=== PATIENT | female | born 1980 | race Caucasian/White ===

== ENCOUNTER 2016-12-01 21:22 | Emergency (ER) | payer OTHER ==
[~2016-12-01] VITALS: Ht 167.6 cm; Wt 86.4 kg
[~2016-12-01 21:22] MED LIST: OMEP20TA86 PO; ONDA8TAB10 PO; PROC25SU30 RC
[2016-12-01 21:30] VITALS: BP 146/79; PULSE 96; RESP 22; O2SAT 99
--- NOTE | 2016-12-01 22:04 | ED.REPORT ---
[id number] Illness Date of Service Dec 01, 2016 ED Provider: Max Campos MD Patient is a 36-year-old female with a hx of pneumonia who presents to the ED complaining of sharp chest pain onset today. The chest pain radiates into her back with inhalation. Patient c/o associated nasal congestion, sore throat, and non-productive cough which have been present for several weeks. She reports that her symptoms feel exactly the same to her previous cases of pneumonia. She denies fever, nausea, and vomiting. Her last case of pneumonia was two months ago. Nursing Notes Stated Complaint: COUGH Chief Complaint: FLU/Cold Symptoms Nursing Notes Reviewed: Yes ([employer], [employer]q not reconciled) Allergies: Coded Allergies: Sulfa (Sulfonamide Antibiotics) (Verified Allergy, Unknown, 07/31/16) codeine (Verified Allergy, Unknown, 07/31/16) Scheduled Azithromycin (Zithromax) 250 Mg Tablet 250 MG PO DAILY Fluconazole (Diflucan) 150 Mg Tablet 150 MG PO ONCE Omeprazole (Omeprazole) 20 Mg Tablet.dr 20 MG PO BID Scheduled PRN Ondansetron ODT (Ondansetron ODT) 8 Mg Tab.rapdis 8 MG PO QID PRN PRN For Nausea Prochlorperazine Maleate (Compazine Suppository) 25 Mg Supp.rect 25 MG RC Q8 PRN PRN For Nausea/Vomiting General Time Seen by Provider: 11:10 Chief Complaint Other (chest pain with inhalation) Hx Obtained From: Patient Arrived By: Walk-in Onset Occurred: Just prior to arrival Symptom Duration: Since onset Location: : Chest Radiation: Radiation present (into back upon inhalation) Severity: Current: No pain currently Recent Healthcare: Recent doctor visit (In August - for same - Rx with antibioics), Previous diagnosis (pneumonia when she has had these symptoms) Similar Sx Previous: Yes Past Medical History Past Medical History Chronic Back Pain with chronic opiate use - on Suboxone 16 mg daily multiple cases of pneumonia Past Surgical History Sinus surgery Reports: , Cholecystectomy, Tonsillectomy Smoking History Former Smoker (patient reports she quit in recent months) Social History Opiate use due to chronic back pain Alcohol Use: Denies alcohol use Drug Use: Denies drug use Ambulatory Status Independent Review of Systems Constitutional: Denies: Fever Ears / Nose / Throat: Reports: Nasal congestion Respiratory: Reports: Non-productive cough, Denies: Shortness of breath Cardiovascular: Reports: Chest pain GI: Denies: Nausea, Vomiting Complete sys rev & neg: except as marked. Physical Exam Initial Vital Signs Vital Signs (First) Date Time Temp Pulse Resp B/P Pulse Ox O2 Delivery O2 Flow Rate FiO2 12/01/16 21:30 37.6 96 22 146/79 99 Initial VS: Reviewed, Vital signs normal Head / Eyes: Atraumatic, Normocephalic, PERRL ENT: Mucous membranes moist, Conjunctiva normal, No scleral icterus Extremities: Vascular intact, Neuro intact, No swelling, No tenderness Psychiatric: Mood/affect normal, Behavior normal, Normal thought content General/Constitutional: Awake, Alert, No acute distress, Well appearing, Cooperative, Not toxic appearing Neck: Atraumatic, Supple, No meningismus, Full range of motion, No adenopathy, No swelling, Non-tender Respiratory / Chest: Atraumatic, Breath sounds NL, Breath sounds = bilat, No respiratory distress cough clutches chest in pain when coughing lungs are clear Cardiovascular: Heart rate NL, Regular rhythm, Heart sounds NL, No gallop, No murmurs, No rubs Skin: Atraumatic, Color NL, No rash, Warm, Dry Neurologic: Oriented X3, Speech NL, No motor deficits, No sensory deficits Interpretation & Diagnostics Lab Results Interpretation Lab Results Interpretation: negative for influenza A & B Re-Evaluation & [facility] Med Decision/Clinical Course This is a 36-year-old former smoker on Suboxone and presents with a cough, and pleuritic chest pain. She describes URI-type presentation over recent weeks, believes she is developed a pneumonia. 4 she has had community-acquired pneumonia several times and this feels identical. Today she has developed a bit of a pleuritic discomfort and has come in requesting straight treatment with antibiotics. sHe is not toxic. She has normal vital signs. To me her lungs are clear, I do not appreciate divya rhonchi or bronchospasm. She is not respiratory distress. Although she has pleuritic pain, her symptoms clearly sound like a respiratory infection. She is PERC rule negative and no additional workup for PE is indicated. She has no clinical features to suggest acute coronary syndrome. I do not think she has a pneumothorax However when I discussed options with her, she preferred to skip an x-ray and wishes to be directly treated with antibiotics as she is quite certain she has a bacterial infection, and again reiterates that this is identical to what she has been treated for before. Given that, I have elected to treat her empirically with azithromycin at her request. An influenza swab was negative. Patient is being discharged with a prescription for azithromycin at her request. She is also requested some diflucan and I have written a prescription for that as well. Routine precautions reviewed, patient's discharge improved condition. Source of Hx: Old records Re-Evaluation/Progress : Time of Eval: 10:25 Patient Status: Condition unchanged Re-Evaluation/Progress Note: Pt rechecked. Informed pt of diagnosis of pneumonia and plan for treatment. Pt understands and agrees with plan. F/U and RTER warnings given. All questions addressed. Differential Diagnosis: Positive: Pneumonia, Negative: Allergic rhinitis, Appendicitis, Bowel obstruction, Diabetes/DKA, Meningitis, Sepsis Counseled Regarding: Diagnosis, Lab results, Need for follow-up, When/why to return to ED Patient Discharge & Departure Impression: Primary Impression: Respiratory infection Disposition: Home Discharge Condition All VS Reviewed: Yes Condition: Stable Additional Instructions: 1. Given you have indicated the symptoms are identical to what she had with previous pneumonias, it is reasonable to treat empirically. 2. You have received the first dose of azithromycin tonight. Starting tomorrow take 1 tab of 250 mg once a day for 4 more days. 3. Rest. 4. Take extra fluids. 5. Congratulations on stopping smoking! Referrals: Cristóbal Hanson (PCP) Maryellenibmeghan Attestation Portion of this note were transcribed by Jeff Crocker. I, Dr. Campos, personally performed the history, physical exam, and medical decision-making: I reviewed and confirmed the accuracy for the information in the transcribed note. Signed by: marko Silver, 12/01/16 1100 copies to: Cristóbal Hanson Matthew F MD Dec 01, 2016 22:04 JEFF CROCKER Dec 01, 2016 22:38
[2016-12-01] MEDS ORDERED: ZIT250 PO (22:33)
[2016-12-01] MEDS ORDERED: FLUC150T48 PO (22:37)
[2016-12-01 23:23] VITALS: BP 146/79; PULSE 96; RESP 22; O2SAT 99
== END 2016-12-01 23:23 | disposition home or self-care (01) ==
LOC: SED 21:22
DX: J98.8 Other specified respiratory disorders (principal); R07.81 Pleurodynia; Z87.01 Personal history of pneumonia (recurrent); Z87.891 Personal history of nicotine dependence; Z88.2 Allergy status to sulfonamides; Z88.5 Allergy status to narcotic agent

== ENCOUNTER 2017-07-05 22:37 | Emergency (ER) | payer OTHER ==
[~2017-07-05] VITALS: Ht 167.6 cm; Wt 86.4 kg
[~2017-07-05 22:37] MED LIST changes: +FLUC150T48 PO; +ZIT250 PO
[2017-07-05 23:00] VITALS: BP 121/58; PULSE 94; RESP 18; O2SAT 92
--- NOTE | 2017-07-05 23:15 | ED.REPORT ---
HPI-General Illness Date of Service Jul 05, 2017 ED Provider: Hosea Carroll MD A 37 year old female with a history of recurrent pneumonia and chronic back pain with opiate use presents to the ED complaining of possible pneumonia. The pt has been experiencing right-sided pleuritic pain for two days. This is accompanied by fatigue, fever, chills and productive cough with yellow/green sputum, though the pt denies nausea or vomiting. The pt suspects that her symptoms are due to another episode of pneumonia. Nursing Notes Stated Complaint: POSSIBLE PNEUMONIA Chief Complaint: FLU/Cold Symptoms Nursing Notes Reviewed: Yes Allergies: Coded Allergies: Sulfa (Sulfonamide Antibiotics) (Verified Allergy, Unknown, 07/05/17) codeine (Verified Allergy, Unknown, 07/05/17) Scheduled Azithromycin (Zithromax) 250 Mg Tablet 250 MG PO DAILY Azithromycin (Zithromax (Z-Freddy)) 250 Mg Tablet 250 MG PO DIRECTED Take two tablets by mouth on day 1, then take one tablet daily on days 2 through 5. Cephalexin (Cephalexin) 500 Mg Capsule 500 MG PO QID Fluconazole (Diflucan) 150 Mg Tablet 150 MG PO ONCE Fluconazole (Fluconazole) 150 Mg Tablet 150 MG PO ONCE Omeprazole (Omeprazole) 20 Mg Tablet.dr 20 MG PO BID Scheduled PRN Ondansetron ODT (Ondansetron ODT) 8 Mg Tab.rapdis 8 MG PO QID PRN PRN For Nausea Prochlorperazine Maleate (Compazine Suppository) 25 Mg Supp.rect 25 MG RC Q8 PRN PRN For Nausea/Vomiting General Time Seen by MD: 23:14 Chief Complaint Other (Possible pneumonia) Hx Obtained From: Patient Arrived By: Walk-in Sudden in Onset?: No Onset Occurred: 2 days ago Symptom Duration: Since onset Recent Healthcare: Recent doctor visit Similar Sx Previous: Yes Past Medical History Past Medical History Chronic Back Pain with chronic opiate use - on Suboxone 16 mg daily multiple cases of pneumonia Past Surgical History Sinus surgery Reports: , Cholecystectomy, Tonsillectomy Smoking History Former Smoker Social History Opiate use due to chronic back pain Alcohol Use: Denies alcohol use Drug Use: Denies drug use Ambulatory Status Independent Review of Systems Full Review of Systems Constitutional: Reports: Chills, Fatigue, Fever Respiratory: Reports: Pleuritic pain, Prod cough, green, Prod cough, yellow GI: Denies: Abdominal pain, Nausea, Vomiting Musculoskeletal: Denies: Back pain, Neck pain Skin: Denies Rash Complete sys rev & neg: except as marked. Physical Exam Vital Signs Vital Signs Date Time Temp Pulse Resp B/P Pulse Ox O2 Delivery O2 Flow Rate FiO2 07/06/17 02:12 109 22 128/71 93 Room Air 07/06/17 02:11 109 128/71 93 Room Air 07/05/17 23:40 107 22 95 Room Air 07/05/17 23:00 37.8 94 18 121/58 92 Room Air Initial VS: Reviewed General/Constitutional: Awake, Alert Head / Eyes: Atraumatic, Normocephalic, PERRL, EOMI ENT: Atraumatic, Airway patent, Mucous membranes moist Neck: Atraumatic, Supple, Full range of motion Respiratory / Chest: Atraumatic splinting rales in right lung Cardiovascular: Regular rhythm, Heart sounds NL Heart Rate / Rhythm: Positive: Tachycardia (mild) Abdomen: Atraumatic, Soft, Non-tender Back: Atraumatic, Full range of motion Upper Extremities Upper Extremity / MS: Atraumatic, Full range of motion Lower Extremity / Pelvis / MS: Atraumatic, Full range of motion Skin: Atraumatic, No rash flushed and febrile diaphoretic Neurologic: Oriented X3, Speech NL, No motor deficits, No sensory deficits Psychiatric: Affect NL, Mood NL Interpretation & Diagnostics Lab Results Interpretation Result Diagram: 07/06/17 0004 07/06/17 0004 Test 07/06/17 00:04 07/06/17 01:24 White Blood Count 10.5th/mm3 (3.8-10.1) Red Blood Count 4.81mil/mm3 (3.90-5.20) Hemoglobin 14.7g/dL (12.0-15.6) Hematocrit 42.0% (35.0-46.0) Mean Corpuscular Volume 87.3fL (81-100) Mean Corpuscular Hemoglobin 30.6pg (27.0-35.0) Mean Corpuscular Hemoglobin Concent 35.0% (32.0-37.0) Red Cell Distribution Width 12.6% (12.3-15.4) Platelet Count 214bil/L (150-400) Neutrophils (%) (Auto) 68.9% (40-74) Lymphocytes (%) (Auto) 21.3% (14-46) Monocytes (%) (Auto) 8.3% (4-12) Eosinophils (%) (Auto) 1.2% (0-5) Basophils (%) (Auto) 0.2% (0-3) Sodium Level 139mEq/L (134-144) Potassium Level 3.4mEq/L (3.5-5.2) Chloride Level 100mEq/L (97-108) Carbon Dioxide Level 23mmol/L (18-29) Blood Urea Nitrogen 14mg/dL (6-20) Creatinine 0.65mg/dL (0.57-1.00) Estimat Glomerular Filtration Rate 147mL/min (>59) Glucose Level 97mg/dL (60-99) Lactic Acid Level 0.8mmol/L (0.4-2.0) Calcium Level 9.0mg/dL (8.5-10.1) Magnesium Level 2.0mg/dL (1.6-2.6) Total Bilirubin 1.5mg/dL (0.0-1.2) Aspartate Amino Transf (AST/SGOT) 19U/L (0-50) Alanine Aminotransferase (ALT/SGPT) 21U/L (0-32) Alkaline Phosphatase 95U/L (25-150) Total Protein 6.9g/dL (6.4-8.4) Albumin 4.5g/dL (3.4-5.0) Procalcitonin 0.03ng/mL (0.00-0.08) Hold Urine Received (Received) X-Ray Chest Interpretation Chest Xray Interpretation: right middle lobe pneumonia Interpretation / Wet Read by: Wet read ED physician Re-Eval/Medical Decision Med Decision/Clinical Course 37-year-old with prior history of pneumonia presents with fever cough which is productive and right-sided pleuritic chest pain. X-ray is a streaky infiltrate in the side that may well be middle lobe infiltrate. We will treat empirically with Rocephin and azithromycin followed by Cephalexin and azithromycin. Discharged in stable condition. Source of Hx: Old records Time of Eval: 01:17 Patient Status: Condition improved Re-Evaluation/Progress Note: Pt rechecked, who is resting comfortably. The diagnosis and plan for discharge are discussed. The pt understands and agrees with the plan. All questions are addressed at this time. Counseled Regarding: Diagnosis, Lab results, Need for follow-up, When/why to return to ED Discharge & Departure Primary Impression: Pneumonia Pneumonia type: due to unspecified organism Laterality: right Lung location : middle lobe of lung Qualified Code: J18.1 - Lobar pneumonia, unspecified organism Additional Impression: Pleuritic chest pain Disposition: Home Discharge Condition All VS Reviewed: Yes Condition: Stable Patient Instructions: Community Acquired Pneumonia (ED) Additional Instructions: Begin azithromycin one tablet daily for four more days. Begin Keflex four times daily. Follow-up with your doctor in the office. Continue nebulizer as needed for cough and shortness of breath. Return if any immediate issues over the weekend. Referrals: [facility] Scribe Attestation Portions of this note were transcribed by Linda Torres. I, Dr. Carroll personally performed the history, physical exam and medical decision-making; I reviewed and confirmed the accuracy of the information in the transcribed note. copies to: [facility] Hosea Carroll MD Jul 05, 2017 23:14 LINDA TORRES Jul 05, 2017 23:30
[2017-07-05] MEDS ORDERED: Albuterol 2.5 mg/3 mL Inhalation Solution NEB ONE (23:30)
[2017-07-05] MEDS ORDERED: Albuterol-Ipratropium 3 mL Inhalation Solution NEB ONE (23:30)
[2017-07-05 23:40] VITALS: PULSE 107; RESP 22; O2SAT 95
[2017-07-06 00:07] LABS: BASOPHILS % (AUTO) 0.2 % (0-3); EOSINOPHILS % (AUTO) 1.2 % (0-5); MONOCYTES % (AUTO) 8.3 % (4-12); Mean Corpuscular Hemoglobin 30.6 pg (27.0-35.0); Mean Corpuscular Volume 87.3 fL (81-100); NEUTROPHILS % (AUTO) 68.9 % (40-74); Platelet Count 214 bil/L (150-400)
[2017-07-06] MEDS ORDERED: cefTRIAXone Inj 2,000 MG in Dextrose 5% Minibag Plus 50 ML IV ONE (00:10)
[2017-07-06] MEDS ORDERED: CEPH500C PO (00:52)
[2017-07-06] MEDS ORDERED: AZIT250T4 PO (00:52)
[2017-07-06] MEDS ORDERED: FLUC150T3 PO (00:52)
[2017-07-06 02:11] VITALS: BP 128/71; PULSE 109; O2SAT 93
[2017-07-06 02:12] VITALS: BP 128/71; PULSE 109; RESP 22; O2SAT 93
--- NOTE | 2017-07-06 08:51 | DRSVH ---
PROCEDURE: X-RAY CHEST, TWO VIEWS ([id number]) INDICATIONS: cough, rt sided chest pain TECHNIQUE: 2 views of the chest were acquired. COMPARISON: [facility], CR, CHEST 2VW, 01/05/2014, 13:22. [facility], CR, CHEST 2VW, 01/19/2014, 13:05. [facility], CR, XR CHEST 2VW, 03/11/2016, 13:59. FINDINGS: Surgical changes and devices: Cholecystectomy clips. Lungs and pleura: No pleural effusions or pneumothorax. Lungs are clear, aside from rounded opacity in the right lung base which is unchanged. Mediastinum: Mediastinal contours are normal. Heart size is normal. Bones and chest wall: No suspicious bony abnormalities. Soft tissues appear unremarkable. IMPRESSION: Rounded opacity involving the right lung base unchanged dating back to March 2016 which is likely related to either atelectasis or more likely scarring. Dictated by: Clovis GRAY Interpreted: Sury Frost MD on 07/06/2017 at 8:34 Approved by: Sury Frost M.D. on 07/06/2017 at 8:49
== END 2017-07-06 02:12 | disposition home or self-care (01) ==
LOC: SED 22:37
DX: J18.1 Lobar pneumonia, unspecified organism (principal); R07.81 Pleurodynia; R53.83 Other fatigue; R50.9 Fever, unspecified; Z90.49 Acquired absence of other specified parts of digestive tract; Z87.891 Personal history of nicotine dependence; Z88.2 Allergy status to sulfonamides; Z88.5 Allergy status to narcotic agent
CPT/HCPCS: 36415; 71020; 80053; 83605; 83735; 84145; 85025; 87040; 94664; 96365; 99285; J0696; J7613; J7620